=== PATIENT | male | born 1990 | race Caucasian/White ===

== ENCOUNTER 2019-10-27 07:35 | Emergency (ER) | payer OTHER ==
[~2019-10-27] VITALS: Ht 170.2 cm; Wt 75.0 kg
[2019-10-27 07:37] VITALS: BP 144/89
[2019-10-27] MEDS ORDERED: HYDR-3686 PO (07:55)
[2019-10-27] MEDS ORDERED: PRED20TA PO (07:55)
[2019-10-27] MEDS ORDERED: BETA15CR4 TOP (07:55)
[2019-10-27] MEDS ORDERED: dexamethasone 4mg tablet PO ONE (08:10)
== END 2019-10-27 08:16 | disposition home or self-care (01) ==
LOC: ER 07:35
DX: L23.7 Allergic contact dermatitis due to plants, except food (principal); Z79.899 Other long term (current) drug therapy
CPT/HCPCS: 99283